=== PATIENT | female | born 1960 | race Caucasian/White ===

== ENCOUNTER 2024-12-06 13:08 | Emergency (ER) | payer BC ==
[~2024-12-06] VITALS: Ht 162.6 cm; Wt 63.9 kg
[2024-12-06 13:41] VITALS: BP 149/89; PULSE 91; O2SAT 98
[2024-12-06 14:12] LABS: MEAN PLATELET VOLUME 9.5 FL (7.4-10.4)
[2024-12-06 14:14] LABS: HEMATOCRIT 42.4 % (35.0-45.0); HEMOGLOBIN 14.4 g/dl (12.0-16.0); MEAN CORPUSCULAR HEMOGLOBIN 29.2 PG (27.0-31.0); MEAN CORPUSCULAR VOLUME 85.9 FL (78-98); PLATELET COUNT 287 X10'3 (140-440); RED BLOOD COUNT 4.94 X10'6 (4.20-5.60); RED CELL DISTRIBUTION WIDTH 16.9 % (11.5-14.5); WHITE BLOOD COUNT 6.8 X10'3 (4.5-11.0)
[2024-12-06 14:34] LABS: ALANINE AMINOTRANSFERASE 295 U/L (12-78); ALBUMIN 3.1 G/DL (3.4-5.0); ALBUMIN/GLOBULIN RATIO 0.7 (1.1-1.5); ALKALINE PHOSPHATASE 411 IU/L (46-116); ANION GAP 11 (8-16); ASPARTATE AMINO TRANSFERASE 195 U/L (10-37); BILIRUBIN,TOTAL 17.1 MG/DL (0.1-1.0); BLOOD UREA NITROGEN 7 MG/DL (7-18); BUN/CREATININE RATIO 12.7 (10.0-20.0); CALCIUM 8.9 MG/DL (8.5-10.1); CHLORIDE 101 MMOL/L (99-107); CREATININE 0.55 MG/DL (0.40-0.90); GLUCOSE 101 MG/DL (70-104); POTASSIUM 3.6 MMOL/L (3.5-5.1); SODIUM 136 MMOL/L (135-145); TOTAL CARBON DIOXIDE 24.4 MMOL/L (24-32); TOTAL PROTEIN 7.4 G/DL (6.4-8.2); eCRCL 92 ML/MIN; eGFR > 90 ML/MIN
[2024-12-06 14:52] LABS: PLATELET ESTIMATE NORMAL; TOTAL CELLS COUNTED 100
[2024-12-06 14:53] LABS: ANISOCYTOSIS 1+
[2024-12-06 14:55] LABS: STOMATOCYTES FEW; TARGET CELLS 1+
[2024-12-06 17:31] VITALS: RESP 16; TEMP 98.3
== END 2024-12-06 17:33 | disposition home or self-care (01) ==
LOC: ER 13:08
DX: R79.89 Other specified abnormal findings of blood chemistry (principal)
CPT/HCPCS: 36415; 80053; 80074; 85007; 85025; 99283